=== PATIENT | male | born 1985 | race African-American/Black ===

== ENCOUNTER 2024-08-20 00:47 | Emergency (ER) | payer SELFPAY ==
[~2024-08-20] VITALS: Ht 175.3 cm; Wt 79.5 kg
[2024-08-20 00:50] VITALS: TEMP 97.3
[2024-08-20 02:44] VITALS: BP 135/98; PULSE 95; RESP 19; O2SAT 98
== END 2024-08-20 01:44 ==
LOC: ER 00:48
DX: Z02.89 Encounter for other administrative examinations (principal); T50.992A Poisoning by other drugs, medicaments and biological substances, intentional self-harm, initial encounter; Y92.89 Other specified places as the place of occurrence of the external cause
CPT/HCPCS: 99283